=== PATIENT | female | born 1955 | race Hispanic/Latino ===

== ENCOUNTER 2017-07-23 05:57 | Day surgery (SDC) | payer BC ==
[~2017-07-23] VITALS: Ht 144.8 cm; Wt 50.4 kg
[~2017-07-23 05:57] MED LIST: OMEP40CA37 PO; VIT D PO
[2017-07-23] MEDS ORDERED: SODIUM CHLORIDE 0.9% 1000ML 1,000 ML IV ONE (07:04)
[2017-07-23 07:08] VITALS: BP 133/73
[2017-07-23 08:03] VITALS: BP 79/43
== END 2017-07-23 08:44 | disposition home or self-care (01) ==
LOC: DAH 05:57 → SUH 05:57
PROVIDERS: ATTEND Internal Medicine Gastroenterology
DX: K21.9 Gastro-esophageal reflux disease without esophagitis (principal); E78.5 Hyperlipidemia, unspecified; H40.9 Unspecified glaucoma; Z90.710 Acquired absence of both cervix and uterus; Z98.890 Other specified postprocedural states; Z68.35 Body mass index [BMI] 35.0-35.9, adult; B96.81 Helicobacter pylori [H. pylori] as the cause of diseases classified elsewhere
CPT/HCPCS: 43235; A4606; J7030